=== PATIENT | female | born 1980 ===

== ENCOUNTER 2022-01-18 17:14 | Emergency (ER) | payer MEDICAID | END 2022-01-18 20:16 | disposition left against medical advice (07) | LOC: ER 17:16 | DX: Z01.84 Encounter for antibody response examination (principal); Z53.21 Procedure and treatment not carried out due to patient leaving prior to being seen by health care provider ==

== ENCOUNTER 2022-01-18 21:03 | Emergency (ER) | payer MEDICAID ==
[~2022-01-18] VITALS: Ht 165.1 cm; Wt 54.5 kg
[2022-01-18 21:22] VITALS: BP 125/75
--- NOTE | 2022-01-18 21:46 | NUR ---
SPOKE TO DR TORRES CONCERNING PT. RECIEVED ORDERS TO START WITH A COVID TEST AND EKG. WILL HOLD ON IMAGING FOR NOW.
== END 2022-01-19 02:49 | disposition left against medical advice (07) ==
LOC: ER 21:05
DX: J11.1 Influenza due to unidentified influenza virus with other respiratory manifestations (principal); Z20.822 Contact with and (suspected) exposure to COVID-19; Z53.21 Procedure and treatment not carried out due to patient leaving prior to being seen by health care provider
CPT/HCPCS: 87635; 93005; C9803